=== PATIENT | male | born 1980 | race Two or more races ===

== ENCOUNTER 2021-04-28 12:25 | Outpatient (CLI) | payer OTHER | END 2021-04-28 12:26 | disposition home or self-care (01) | LOC: RAD 12:25 | PROVIDERS: ATTEND Orthopaedic Surgery | DX: M25.561 Pain in right knee (principal); M25.562 Pain in left knee ==

== ENCOUNTER 2021-08-22 14:52 | Outpatient (CLI) | payer OTHER | END 2021-08-22 14:54 | disposition home or self-care (01) | LOC: LAB 14:52 | PROVIDERS: ATTEND Orthopaedic Surgery | DX: I49.9 Cardiac arrhythmia, unspecified (principal); I10 Essential (primary) hypertension; Z76.89 Persons encountering health services in other specified circumstances; N39.0 Urinary tract infection, site not specified ==

== ENCOUNTER 2022-07-22 16:50 | Outpatient (CLI) | payer OTHER | END 2022-07-22 16:59 | disposition home or self-care (01) | LOC: RAD 16:50 | PROVIDERS: ATTEND Orthopaedic Surgery | DX: M25.561 Pain in right knee (principal) ==